=== PATIENT | female | born 1940 | race Caucasian/White ===

== ENCOUNTER → 2017-03-21 | Day surgery (SDC) | payer MEDICARE, OTHER ==
[~2017-03-21] MED LIST: ALEV220T14 PO; AMBI12.5 PO; AMIT25TA9 PO; BUPIVACAINE HCL PF 0.5% 30 ML VIAL ONE; CALA180T PO; CALC1CAP PO; COQ-50CA2 PO; CYANOCOBALAMIN 1000 MCG/ML VIAL IM ONE; DIAZ5TAB PO; GABA300C5 PO; MAGN100T2 PO; MELO7.5T4 PO; MOBI7.5S PO; MORP10IN2 PO; MORP1TAB24 PO; PROPOFOL 200 MG/20 ML AMP IV ONE; RALO1TAB13 PO; TRAM50 PO; TRAM50TA PO; TRIAMCINOLONE ACETONIDE 40 MG/ML VIAL NERV BLOCK ONE; VERA180C3 PO; ZINC30TA PO; ZOLP5TAB3 PO
--- NOTE | 2017-03-21 07:44 | M6 ---
cc: KELBY ALANIZ M.D. DATE 03/21/2017 DATE OF 1940 PROCEDURE Left pudendal nerve block. History and physical was completed and signed. Consent was signed. Procedure site was marked. Medications were listed and reconciled. Pain score was recorded. Allergies were noted. Time out was taken. Fluoroscopy time was recorded where applicable. PROCEDURE NOTE IV was started. Blood pressure cuff, pulse oximeter and EKG were applied. The patient was placed in the supine position, sedated with small amounts of propofol titrated to effect. Vital signs were monitored and remained stable throughout the procedure. The patient was placed in the lithotomy position. The perineum was prepped with alcohol. The ischial tuberosity was palpated. A 3.5-inch, 22-gauge spinal needle was inserted down to the tuberosity and then redirected off the medial aspect of the tuberosity. There was negative aspiration for blood or any other type of fluid and the patient was given 10 mL of 0.5% Marcaine, 40 mg of Kenalog. Following this the patient was taken to the recovery room with stable vital signs, neurologically intact. W. Scott Alaniz MD WRM/SSB /7:33 AM /7:38 AM
== END | disposition home or self-care (01) ==
LOC: PHSDC 06:28
PROVIDERS: ATTEND Pain Medicine Interventional Pain Medicine
DX: M70.72 Other bursitis of hip, left hip (principal)
CPT/HCPCS: 64430; 99152; J3301; J3420

== ENCOUNTER → 2017-05-07 | Day surgery (SDC) | payer MEDICARE, OTHER ==
[~2017-05-07] MED LIST changes: -AMBI12.5 PO; -CALA180T PO; -CYANOCOBALAMIN 1000 MCG/ML VIAL IM ONE; +CYANOCOBALAMIN 1000 MCG/ML VIAL ONE; +IOHEXOL 180 MG/ML 20 ML VIAL (for RAD DIAG) EPIDURAL ONE; +MELO7.5T27 PO; -MELO7.5T4 PO; -MOBI7.5S PO; -MORP10IN2 PO; -RALO1TAB13 PO; +RED600TA; +SODIUM CHLORIDE 0.9% 10 ML VIAL ONE; -TRAM50 PO
--- NOTE | 2017-05-07 11:44 | M6 ---
cc: KELBY ALANIZ M.D. DATE 05/07/2017 DATE OF 1940 PROCEDURE Ganglion impar block. History and physical was completed and signed. Consent was signed. Procedure site was marked. Medications were listed and reconciled. Pain score was recorded. Allergies were noted. Time out was taken. Fluoroscopy time was recorded where applicable. Sedation was administered or directed by Dr. Alaniz. The patient was given oxygen. The patient was monitored by a registered nurse. Total procedure time was greater than 15 minutes. PROCEDURE NOTE IV was started. Blood pressure cuff, pulse oximeter and EKG were applied. The patient was placed in the prone position on a Nicanor, table sedated with small amounts of propofol titrated to effect. Vital signs were monitored and remained stable throughout the procedure. The sacral and coccygeal area was prepped with alcohol and 10% Betadine solution and draped with sterile drapes. Fluoroscopy was used to visualize the sacrococcygeal ligament. A 22-gauge blunt bevel needle was advanced into the ligament and then slowly advanced using [id number]-pu-wetbwgsqat technique to penetrate into the retroperitoneal space at which time Omnipaque dye was seen to spread linearly along the anterior surface of the sacrum. At this point the patient was given 7 mL of 0.5% Marcaine and 30 mg of Kenalog. The needle was withdrawn and the patient was taken to the recovery room with stable vital signs, neurologically intact. She will be evaluated immediately and with followup to determine if she has a subjective decrease in her usual pain and a corresponding objective increase in her functional capabilities. W. MD SIMONA Izaguirre/MAILE /10:20 AM /11:42 AM
== END | disposition home or self-care (01) ==
LOC: PHSDC 08:22
PROVIDERS: ATTEND Pain Medicine Interventional Pain Medicine
DX: M70.72 Other bursitis of hip, left hip (principal)
CPT/HCPCS: 64517; 77003; 99152; J3301; J3420; Q9965; 77002

== ENCOUNTER → 2017-09-10 | Outpatient (CLI) | payer MEDICARE ==
[~2017-09-10] MED LIST changes: -BUPIVACAINE HCL PF 0.5% 30 ML VIAL ONE; -CYANOCOBALAMIN 1000 MCG/ML VIAL ONE; -IOHEXOL 180 MG/ML 20 ML VIAL (for RAD DIAG) EPIDURAL ONE; +LIDO5%T TOPICAL; -PROPOFOL 200 MG/20 ML AMP IV ONE; -SODIUM CHLORIDE 0.9% 10 ML VIAL ONE; -TRIAMCINOLONE ACETONIDE 40 MG/ML VIAL NERV BLOCK ONE
[2017-09-10 14:48] LABS: BILIRUBIN, URINE NEG (NEG); BLOOD, URINE NEG (NEG); GLUCOSE,URINE NEG (NEG); KETONE, URINE NEG (NEG); NITRITE,URINE NEG (NEG); URINE COLOR YELLOW (YELLW/STRAW); URINE LEUKOCYTE ESTERASE NEG (NEG)
[2017-09-10 14:54] LABS: RBC, URINE 0-3 /hpf (0-3)
[2017-09-10 14:55] LABS: AMORPHOUS SEDIMENT, URINE MOD; SQUAMOUS EPITHELIAL CELL URINE 0-5 /hpf (0-5)
[2017-09-10 15:00] LABS: AUTOMATED NEUTROPHIL # 2.6 TH/MM3 (1.8-7.7); BASOPHIL % 0.6 % (0.0-2.0); EOSINOPHIL # 0.2 TH/MM3 (0-0.4); EOSINOPHIL % 3.4 % (0.0-4.0); HEMATOCRIT 42.5 % (35.0-46.0); HEMOGLOBIN 14.3 GM/DL (11.6-15.3); LYMPH % 37.2 % (9.0-44.0); LYMPHOCYTE # 2.2 TH/MM3 (1.0-4.8); MEAN CELL VOLUME 86.9 FL (80.0-100.0); MEAN CORPUSCULAR HEMOGLOBIN 29.3 PG (27.0-34.0); MEAN CORPUSCULAR HGB CONC 33.7 % (32.0-36.0); MEAN PLATELET VOLUME 8.4 FL (7.0-11.0); MONO % 14.2 % (0.0-8.0); MONOCYTE # 0.8 TH/MM3 (0-0.9); NEUT % 44.6 % (16.0-70.0); PLATELET COUNT 282 TH/MM3 (150-450); RED BLOOD COUNT 4.89 MIL/MM3 (4.00-5.30); RED CELL DISTRIBUTION WIDTH 12.8 % (11.6-17.2); WHITE BLOOD COUNT 5.8 TH/MM3 (4.0-11.0)
--- NOTE | 2017-09-11 14:34 | EKG ---
Date Performed: 09/10/2017 Time Performed: 14:25:07 PTAGE: 77 years EKG: Sinus rhythm NORMAL ECG NO PREVIOUS TRACING DOCTOR: Norm Andersen Interpretating Date/Time 09/11/2017 14:33:18
== END ==
LOC: PHPRE 13:20
PROVIDERS: ATTEND Pain Medicine Interventional Pain Medicine
DX: Z01.810 Encounter for preprocedural cardiovascular examination (principal); Z01.812 Encounter for preprocedural laboratory examination; M54.5 Low back pain
CPT/HCPCS: 36415; 81001; 84132; 85025; 93005

== ENCOUNTER → 2017-10-29 | Outpatient (CLI) | payer MEDICARE ==
[~2017-10-29] MED LIST changes: +CALC1TAB53 PO; +GLUC500T4 PO; +MAPA500T13 PO
[2017-10-29 13:10] LABS: AUTOMATED NEUTROPHIL # 2.8 TH/MM3 (1.8-7.7); BASOPHIL # 0.1 TH/MM3 (0-0.2); BASOPHIL % 1.1 % (0.0-2.0); EOSINOPHIL # 0.2 TH/MM3 (0-0.4); EOSINOPHIL % 3.3 % (0.0-4.0); HEMATOCRIT 43.2 % (35.0-46.0); HEMOGLOBIN 14.6 GM/DL (11.6-15.3); LYMPH % 38.4 % (9.0-44.0); LYMPHOCYTE # 2.4 TH/MM3 (1.0-4.8); MEAN CELL VOLUME 86.9 FL (80.0-100.0); MEAN CORPUSCULAR HEMOGLOBIN 29.5 PG (27.0-34.0); MEAN CORPUSCULAR HGB CONC 33.9 % (32.0-36.0); MEAN PLATELET VOLUME 8.4 FL (7.0-11.0); MONO % 12.3 % (0.0-8.0); MONOCYTE # 0.8 TH/MM3 (0-0.9); NEUT % 44.9 % (16.0-70.0); PLATELET COUNT 292 TH/MM3 (150-450); RED BLOOD COUNT 4.97 MIL/MM3 (4.00-5.30); RED CELL DISTRIBUTION WIDTH 13.4 % (11.6-17.2); WHITE BLOOD COUNT 6.3 TH/MM3 (4.0-11.0)
[2017-10-29 13:10] LABS: BILIRUBIN, URINE NEG (NEG); BLOOD, URINE NEG (NEG); GLUCOSE,URINE NEG (NEG); KETONE, URINE NEG (NEG); NITRITE,URINE NEG (NEG); PH, URINE 7.5 (5.0-8.5); URINE COLOR YELLOW (YELLW/STRAW); URINE LEUKOCYTE ESTERASE LARGE (NEG)
[2017-10-29 13:14] LABS: AMORPHOUS SEDIMENT, URINE FEW; BACTERIA, URINE FEW /hpf; RBC, URINE 0-3 /hpf (0-3); SQUAMOUS EPITHELIAL CELL URINE 0-5 /hpf (0-5)
== END ==
LOC: PHPRE 12:30
PROVIDERS: ATTEND Pain Medicine Interventional Pain Medicine
DX: Z01.812 Encounter for preprocedural laboratory examination (principal); M54.5 Low back pain; B96.89 Other specified bacterial agents as the cause of diseases classified elsewhere
CPT/HCPCS: 36415; 81001; 84132; 85025; 87086

== ENCOUNTER → 2017-11-05 | Day surgery (SDC) | payer MEDICARE ==
[~2017-11-05] VITALS: Ht 162.6 cm; Wt 51.0 kg
[~2017-11-05] MED LIST changes: +BUPIVACAINE/EPINEPHRINE 0.5% PF 30 ML VIAL INFIL ONE; -CALC1CAP PO; +CHLORHEXIDINE GLUCONATE 2 % 1 PACK (2 CLOTHS) TOPICAL PRN; +LACTATED RINGER'S 1000 ML IV PRN; +METOPROLOL TARTRATE 25 MG TAB PO PRN; +POVIDONE IODINE 5% (ANTISEPSIS KIT) 4 APPLICATIONS EACH NARE PRN; +PROPOFOL 200 MG/20 ML AMP ONE; -RED600TA; +SODIUM CHLORID 0.9% 500 ML IV PRN; +VANCOMYCIN HCL 500 MG ON-CALL/NS 100 ML IV SCH; -ZINC30TA PO
[2017-11-05 15:21] VITALS: TEMP 97.7
--- NOTE | 2017-11-05 15:50 | MP ---
cc: Faby Alaniz MD DATE OF OPERATION: 11/05/2017 PROCEDURE PERFORMED: Implantation of [employer] spinal cord stimulating octrodes x2. PREOPERATIVE DIAGNOSIS: Pudendal neuralgia. POSTOPERATIVE DIAGNOSIS: Pudendal neuralgia. PROCEDURE NOTE: IV was started in the holding area. The surgical consent form was signed the surgical site was marked. The patient was taken to the operating room and placed in the prone position and sedated and monitored by anesthesia. Her back was prepped with ChloraPrep and draped with sterile drapes. Fluoroscopy was used to visualize the L3-L4 interlaminar space. The skin was infiltrated with 1% Xylocaine, using a 27-gauge needle. Then, a [employer] modified Tuohy needle was advanced into the epidural space, slightly to the left of the midline and then a second one slightly to the right of the midline. Then, 2 [employer]tron[employer] spinal cord stimulating octrodes were threaded parallel to each other until the cephalad tip of the electrodes was at the cephalad border of L1 and the caudal electrodes were at the caudal border of L2. The patient then was awakened and stimulation took place. She felt the stimulation in her buttocks and in her perineum. The patient then was resedated and the stylets were removed. The needles were removed. An incision had been previously made around the needles. The octrodes leads were anchored to the underlying fascia using a Silastic anchor circumferentially tied with two 2-0 Ethibond sutures. Then, distal extension wires were connected to the stimulating leads by tightening island screw and covering the connection with a Silastic cover secured at both ends with 2-0 Ethibond suture. Impedance was checked at the bedside and found to be appropriate through all the electrodes. Then, a tunneling device was used to tunnel the distal extension wires from the lumbar incision to the exit on the patient's left flank. The stimulating leads were coiled in the subcutaneous pocket on the midline. The incision was irrigated with Betadine. Closure took place with 3-0 Monocryl in subcuticular tissue and 3-0 nylon on the skin. Incisions were covered with sterile adhesive dressings and the patient was taken to the recovery room with stable vital signs, neurologically intact. W. Scott Alaniz MD WRM/TL , 03:24 PM , 03:48 PM
[2017-11-05 15:55] VITALS: BP 111/62; PULSE 62; RESP 14; O2SAT 99
--- NOTE | 2017-11-07 18:00 | RADRPT ---
EXAM DATE: 11/07/2017 12:55 PM EDT AGE/SEX: 77 years / Female INDICATIONS: Spinal stimulator. CLINICAL DATA: This is the patient's initial encounter. Patient reports that signs and symptoms have been present for 1 day and indicates a pain score of Nonresponsive. MEDICAL/SURGICAL HISTORY: Non-responsive. Non-responsive. COMPARISON: No prior [facility] exams available for comparison. FINDINGS: Assuming 5 lumbar type vertebral bodies, limited single AP view of the spine demonstrates a radiopaqu e marker at the mid L1 level. Spinal stimulator wires are noted extending to this level. Visualized o sseous structures are intact. CONCLUSION: 1. Limited AP view of the thoracolumbar spine with radiopaque marker likely at the L1 level, as abov e. Electronically signed by: Crow Morton MD 11/07/2017 5:59 PM EDT
== END | disposition home or self-care (01) ==
LOC: PHSDC 10:33
PROVIDERS: ATTEND Pain Medicine Interventional Pain Medicine
DX: G58.8 Other specified mononeuropathies (principal); M96.1 Postlaminectomy syndrome, not elsewhere classified; I10 Essential (primary) hypertension; E03.9 Hypothyroidism, unspecified
CPT/HCPCS: 01936; 63650; 72020; C1778; J3370; J7120

== ENCOUNTER → 2017-11-15 | Day surgery (SDC) | payer MEDICARE ==
[~2017-11-15] VITALS: Ht 162.6 cm; Wt 52.0 kg
[~2017-11-15] MED LIST changes: +*MEPERIDINE 25 MG INJ VIAL PERIprocedural Use ONLY ONE; +ACETAMINOPHEN/HYDROcodone 325 MG/5 MG TAB ONE; +BUPIVACAINE/EPINEPHRINE 0.5% PF 10 ML VIAL ONE; -BUPIVACAINE/EPINEPHRINE 0.5% PF 30 ML VIAL INFIL ONE; +KETAMINE HCL 500 MG/10 ML VIAL ONE; -PROPOFOL 200 MG/20 ML AMP ONE; +SODIUM CHLORIDE 0.9% INJ 100 ML ONE; +VANCOMYCIN 1 GM/200 ML PREMIX ON-CALL IV SCH; +VANCOMYCIN 500 MG VIAL ONE; +VANCOMYCIN 500 MG/NS 100 ML IV ONE; -VANCOMYCIN HCL 500 MG ON-CALL/NS 100 ML IV SCH
[2017-11-15 14:47] VITALS: PULSE 76
--- NOTE | 2017-11-15 15:07 | MP ---
cc: Faby Alaniz MD DATE OF OPERATION: 11/15/2017 DATE OF PROCEDURE: 11/15/2017 PROCEDURE PERFORMED: Implantation of [employer] dual channel rechargeable pulse generator for spinal cord stimulation. 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 POSTPROCEDURE DIAGNOSIS: Pudendal neuralgia with intractable pain. DESCRIPTION OF PROCEDURE: IV was started in the holding area. The patient was given IV antibiotics. Surgical site was marked. The consent forms were signed. The patient was taken to the operating room, placed in the right lateral decubitus position. The bandages on her left flank were removed. The distal extension wire was prepped with alcohol and cut with sterile scissors. Then, the patient's abdomen and back were prepped with ChloraPrep and draped with sterile drapes. The lumbar incision was infiltrated with 0.5% Marcaine containing epinephrine and then the left subcostal area was also infiltrated. The lumbar incision was opened. The stimulating leads were exteriorized and disconnected from the distal extension wire by loosening Sim screws. Then, an incision was made in the left subcostal area and a subcutaneous pocket was created. Then, a tunneling device was used to tunnel the stimulating leads from the lumbar incision to the left subcutaneous pocket. There, they were connected to the [employer] dual channel rechargeable pulse generator by tightening Sim screws. Impedance was checked at the bedside and found to be appropriate in all of the electrodes. Then, the redundant wires were coiled behind the pulse generator. The pulse generator was placed into the subcutaneous pocket and anchored to the underlying fascia using two 2-0 Ethibond sutures. Then, the abdominal incision and the lumbar incision were irrigated with a small amount of Betadine. Closure took place with 3-0 Monocryl in the subcuticular tissue and 3-0 nylon on the skin. The incisions were then covered with sterile adhesive dressings, and the patient was taken to the recovery room with stable vital signs and neurologically intact. MD SIMONA Bailey/ALLEN , 02:46 PM , 03:06 PM
[2017-11-15 15:45] VITALS: PULSE 71; TEMP 97.5
[2017-11-15 16:30] VITALS: BP 109/63; PULSE 71; RESP 14; O2SAT 99
== END | disposition home or self-care (01) ==
LOC: PHSDC 10:22
PROVIDERS: ATTEND Pain Medicine Interventional Pain Medicine
DX: G58.8 Other specified mononeuropathies (principal); I10 Essential (primary) hypertension
CPT/HCPCS: 00300; 63685; C1820; J2175; J3010; J3370; J7120